=== PATIENT | female | born 1960 | race American Indian/Alaskan Native ===

== ENCOUNTER 2017-03-19 17:52 | Inpatient (IN) | payer OTHER ==
[2017-03-19 19:12] LABS: BASO % 0.9 % (0.0-2.0); EOS # 0.1 K/uL (0.0-0.7); HEMOGLOBIN 13.7 g/dL (11.0-16.0); LYMPH # 1.9 K/uL (1.0-4.3); LYMPH % 41.4 % (20.0-40.0); MEAN CORPUSCULAR HEMOGLOBIN 29.6 pg (27.0-31.0); MEAN CORPUSCULAR HGB CONC 32.9 g/dL (33.0-37.0); MEAN PLATELET VOLUME 8.2 fL (7.2-11.7); MONO # 0.4 K/uL (0.0-0.8); MONO % 8.7 % (0.0-10.0); NEUT # 2.2 K/uL (1.8-7.0); NRBC % 0.1 % (0.0-2.0); RBC 4.62 Mil/uL (3.80-5.20); WHITE BLOOD COUNT 4.7 K/uL (4.8-10.8)
[2017-03-19 19:30] LABS: ALB/GLOB RATIO 1.1 (1.0-2.1); ALBUMIN 4.1 g/dL (3.5-5.0); ALT/SGPT 17 U/L (9-52); AST/SGOT 22 U/L (14-36); BLOOD UREA NITROGEN 7 mg/dL (7-17); CALCIUM 8.1 mg/dl (8.6-10.4); GFR AFRICAN-AMERICAN > 60; GFR NON-AFRICAN AMERICAN > 60
[2017-03-19 19:34] LABS: SQUAMOUS EPITHIAL 21 /hpf (0-5); URINE BILIRUBIN NEGATIVE (NEGATIVE); URINE BLOOD NEGATIVE (NEGATIVE); URINE CLARITY Hazy (Clear); URINE COLOR Yellow (YELLOW); URINE GLUCOSE (UA) NORMAL (Normal); URINE LEUKOCYTE ESTERASE TRACE Leu/uL (Negative); URINE NITRATE NEGATIVE (NEGATIVE); URINE PROTEIN NEGATIVE (NEGATIVE); URINE UROBILINOGEN NORMAL mg/dL (0.2-1.0)
[2017-03-19 19:47] LABS: FREE T4 0.17 ng/dL (0.78-2.19)
[2017-03-19 20:04] LABS: BARBITURATES, UR NEGATIVE (NEGATIVE); BENZODIAZEPINES, UR NEGATIVE (NEGATIVE); PHENCYCLIDINE, UR NEGATIVE (NEGATIVE)
[2017-03-19] MEDS ORDERED: Albuterol-Ipratrop 3 mg / 0.5 (3 ml) UD ONE ×2 (20:04→20:14)
[2017-03-19 20:05] LABS: OPIATES, UR POSITIVE (NEGATIVE)
[2017-03-19] MEDS: Albuterol-Ipratrop 3 mg / 0.5 (3 ml) UD IH SCH ×2 (20:08→20:21)
[2017-03-19] MEDS ORDERED: cefTRIAXone IV 1 gm in Dextros 50 ML IVPB STA (20:37)
[2017-03-19] MEDS ORDERED: Azithromycin 500 MG in Sodium Chloride 0.9% 250 ML IVPB STA (20:37)
[2017-03-19] MEDS ORDERED: Lactated Ringer's 1,000 ML IVB STA (20:44)
[2017-03-19] MEDS ORDERED: Lactated Ringer's 1,000 ML ONE (20:57)
--- NOTE | 2017-03-19 21:14 | C.PDOC ---
History Of Present Illness Pt came here requesting detox from Heroin. However she was found to be hypoxic with abnormal lung sounds. She c/o SOB and cough. Time Seen by Provider: 03/19/17 18:15 Chief Complaint (Nursing): Shortness Of Breath History Per: Patient Onset/Duration Of Symptoms: Days Current Symptoms Are (Timing): Still Present Current Respiratory Medications: See Home Med List Severity: Moderate Associated Symptoms: Productive Cough Reports Recently: Treated By A Physician Additional History Per: Prior Records Past Medical History Reviewed: Historical Data, Nursing Documentation, Vital Signs Vital Signs: Last Vital Signs Temp 97.6 F 03/19/17 20:17 Pulse 81 03/19/17 20:17 Resp 20 03/19/17 20:17 BP 143/90 03/19/17 20:17 Pulse Ox 98 03/19/17 20:17 - Medical History PMH: Bipolar Disorder, COPD, HTN, Hyperthyroidism, Seizures Family History: States: Unknown Family Hx - Social History Hx Tobacco Use: Yes Hx Alcohol Use: No Hx Substance Use: Yes (Snorts Heroin) - Immunization History Hx Tetanus Toxoid Vaccination: Yes Hx Influenza Vaccination: Yes Hx Pneumococcal Vaccination: No Review Of Systems Except As Marked, All Systems Reviewed And Found Negative. Constitutional: Negative for: Weakness Respiratory: Positive for: Cough, Shortness of Breath, Wheezing Gastrointestinal: Negative for: Vomiting, Abdominal Pain, Diarrhea Genitourinary: Negative for: Dysuria Musculoskeletal: Negative for: Neck Pain Skin: Negative for: Rash Neurological: Negative for: Weakness, Numbness Physical Exam - Physical Exam Appears: Non-toxic, No Acute Distress Skin: Normal Color, Warm, Dry, No Rash Head: Atraumatic, Normacephalic Eye(s): bilateral: Normal Inspection, PERRL, EOMI Neck: Normal ROM, Supple, Other (Enlarged thyroid gland) Cardiovascular: Rhythm Regular Respiratory: No Accessory Muscle Use, Wheezing Gastrointestinal/Abdominal: Soft, No Tenderness Back: No CVA Tenderness Extremity: Normal ROM, No Pedal Edema, No Calf Tenderness Neurological/Psych: Oriented x3, Normal Motor, Normal Sensation ED Course And Treatment - Laboratory Results Result Diagrams: 03/19/17 19:01 03/19/17 19:01 Lab Interpretation: Abnormal Interpretation Of Abnormal: Thyroid hormone level is low. O2 Sat by Pulse Oximetry: 88 Pulse Ox Interpretation: Abnormal Interpretation Of Abnormal: Hypoxia on RA - Radiology CXR: Interpreted by Me, Viewed By Me CXR Interpretation: Yes: Infiltrates (right middle) - Physician Consult Information Physician Contacted: Hunter Garcia (PMD) Outcome Of Conversation: He wants pt to be admitted under Dr. Carlee Guzmán's service. Disposition Discussed With : Romario Guzmán Comment: He accepted pt on his service. Doctor Will See Patient In The: Hospital Counseled Patient/Family Regarding: Studies Performed, Diagnosis, Smoking Cessation - Disposition Disposition: HOSPITALIZED Disposition Time: 21:16 Condition: FAIR - Clinical Impression Clinical Impression: Pneumonia, COPD exacerbation, Hypothyroid, Hypoxia
--- NOTE | 2017-03-19 21:58 | RAD ---
HISTORY: Cough, wheezing COMPARISON: No prior. TECHNIQUE: Chest PA and lateral FINDINGS: LUNGS: There is heterogeneous infiltrate and opacity at the right middle lobe suspicious for pneumonia. PLEURA: No significant pleural effusion identified. No pneumothorax apparent. CARDIOVASCULAR: Normal. OSSEOUS STRUCTURES: No significant abnormalities. VISUALIZED UPPER ABDOMEN: Normal. OTHER FINDINGS: None. IMPRESSION: Suspicious for right middle lobe pneumonia.
--- NOTE | 2017-03-19 22:25 | CP.PCM.HP ---
Past Patient History - Past Social History Smoking Status: Heavy Smoker > 10 Cigarettes Daily - CARDIAC Hx Hypertension: Yes - PULMONARY Hx Chronic Obstructive Pulmonary Disease (COPD): Yes - NEUROLOGICAL Hx Seizures: Yes - ENDOCRINE/METABOLIC Hx Hyperthyroidism: Yes - HEMATOLOGICAL/ONCOLOGICAL Hx Cancer: No Hx Human Immunodeficiency Virus (HIV): No - GENITOURINARY/GYNECOLOGICAL Hx Sexually Transmitted Disorders: No - PSYCHIATRIC Hx Bipolar Disorder: Yes Hx Substance Use: Yes (Snorts Heroin) - SURGICAL HISTORY Hx Surgeries: No - ANESTHESIA Hx Anesthesia: No Hx Anesthesia Reactions: No Hx Malignant Hyperthermia: No Meds Allergies/Adverse Reactions: Allergies Allergy/AdvReac Type Severity Reaction Status Date / Time iodine Allergy SWELLING Verified 03/19/17 18:04 shellfish derived Allergy SWELLING Verified 03/19/17 18:04 Results - Vital Signs Recent Vital Signs: Last Vital Signs Temp 97.6 F 03/19/17 20:17 Pulse 81 03/19/17 20:17 Resp 20 03/19/17 20:17 BP 143/90 03/19/17 20:17 Pulse Ox 88 L 03/19/17 21:18 - Labs Result Diagrams: 03/19/17 19:01 03/19/17 19:01 Labs: Laboratory Results - last 24 hr 03/19/17 03/19/17 03/19/17 19:01 19:01 19:01 WBC 4.7 L RBC 4.62 Hgb 13.7 Hct 41.6 MCV 90.0 MCH 29.6 MCHC 32.9 L RDW 15.0 H Plt Count 243 MPV 8.2 Neut % (Auto) 47.0 L Lymph % (Auto) 41.4 H [place] % (Auto) 8.7 Eos % (Auto) 2.0 Baso % (Auto) 0.9 Neut # 2.2 Lymph # 1.9 [place] # 0.4 Eos # 0.1 Baso # 0.0 Sodium 135 Potassium 3.4 L Chloride 95 L Carbon Dioxide 35 H Anion Gap 9 L BUN 7 Creatinine 0.6 L Est GFR ( Amer) > 60 Est GFR (Non-Af Amer) > 60 Random Glucose 83 Calcium 8.1 L Total Bilirubin 0.5 AST 22 ALT 17 Alkaline Phosphatase 68 Total Protein 7.8 Albumin 4.1 Globulin 3.6 Albumin/Globulin Ratio 1.1 Free T4 TSH 3rd Generation Urine Color Urine Clarity Urine pH Ur Specific [place] Urine Protein Urine Glucose (UA) Urine Ketones Urine Blood Urine Nitrate Urine Bilirubin Urine Urobilinogen Ur Leukocyte Esterase Urine WBC (Auto) Urine RBC (Auto) Ur Squamous Epith Cells Urine Opiates Screen Urine Methadone Screen Ur Barbiturates Screen Valproic Acid < 10.0 L Ur Phencyclidine Scrn Ur Amphetamines Screen U Benzodiazepines Scrn U Oth Cocaine Metabols U Cannabinoids Screen Alcohol, Quantitative < 10 03/19/17 03/19/17 03/19/17 19:01 19:24 19:24 WBC RBC Hgb Hct MCV MCH MCHC RDW Plt Count MPV Neut % (Auto) Lymph % (Auto) [place] % (Auto) Eos % (Auto) Baso % (Auto) Neut # Lymph # [place] # Eos # Baso # Sodium Potassium Chloride Carbon Dioxide Anion Gap BUN Creatinine Est GFR ( Amer) Est GFR (Non-Af Amer) Random Glucose Calcium Total Bilirubin AST ALT Alkaline Phosphatase Total Protein Albumin Globulin Albumin/Globulin Ratio Free T4 0.17 L TSH 3rd Generation 23.70 H Urine Color Yellow Urine Clarity Hazy Urine pH 7.0 Ur Specific [place] 1.011 Urine Protein Negative Urine Glucose (UA) Normal Urine Ketones Negative Urine Blood Negative Urine Nitrate Negative Urine Bilirubin Negative Urine Urobilinogen Normal Ur Leukocyte Esterase Trace Urine WBC (Auto) 12 H Urine RBC (Auto) 2 Ur Squamous Epith Cells 21 H Urine Opiates Screen Positive H Urine Methadone Screen Negative Ur Barbiturates Screen Negative Valproic Acid Ur Phencyclidine Scrn Negative Ur Amphetamines Screen Negative U Benzodiazepines Scrn Negative U Oth Cocaine Metabols Negative U Cannabinoids Screen Negative Alcohol, Quantitative
[2017-03-20] MEDS: MethylPREDNISolone 40 mg Vial IV SCH ×3 (07:28→21:20)
[2017-03-20] MEDS: Albuterol-Ipratrop 3 mg / 0.5 (3 ml) UD INH SCH ×3 (08:17→20:38)
[2017-03-20] MEDS: Pantoprazole 40 mg EC Tab PO SCH (10:22)
[2017-03-20] MEDS: Divalproex 500 mg ER Tab PO SCH ×4 (10:22→21:19)
[2017-03-20] MEDS: Enoxaparin 40 mg Syringe SC SCH (10:23)
[2017-03-20] MEDS: Azithromycin 500 MG in Sodium Chloride 0.9% 250 ML IVPB SCH (10:24)
[2017-03-20] MEDS ORDERED: Buprenorphine Hydrochloride 2 mg SL SCH (13:30)
[2017-03-20] MEDS: Fluticasone-Salmeterol 250-50mcg Diskus INH SCH ×2 (13:41→20:39)
[2017-03-20] MEDS ORDERED: Buprenorphine Hydrochloride 2 mg SL ONE (14:30)
--- NOTE | 2017-03-20 15:19 | PCM.PSYCH ---
Initial Psychiatric Evaluation - Initial Psychiatric Evaluation Chief Complaint (in patient's own words): "I need treatment" History of Present Illness and Precipitating Events: This is a 56 yo AAF who came to hospital for opioid detox. However, she was admitted to medicine floor for worsening of COPD and Pneumonia. Pt was seen and evaluated. Chart reviewed anurse input received that pt is anxious, and pacing back and forth. THe pt is asking treatment for opioid withdrawal symptoms. Patient stated that she wants to detox because she had a new Great Grand baby and she is tired of being under its (heroin) control. Patient adds she has 4 children, 7 grandchildren and 3 great grandchildren. Additionally she reports that none of her family is aware of her addiction. The pt appeared angry, irritable and stated that she cannot hold her anxiety, restlessness and cannot stay in the hospital with detox treatmet. The pt was minimally cooperative. She has been using 13 bags of heroin intra- nasally on and off for the past 20+ years. Her last use was 1 day before coming to the hospital. CAGE questionnaire was positive. She reported withdrawal symptoms including irritable mood, difficulty in sleep, hot and cold sweats, headache, cramps in the legs, and in stomach. She denied any detox in the past. She denied any rehab including NA meeting in the past. Pt denied drinking etoh, or illicit substances use. Patient reports she has been diagnosed with Bipolar Disorder and is under the care of a psychiatrist. Patient is prescribed Risperdal, Gabapentin and Zoloft with which she reports compliance. However, her depakote level was less than 10. Patient denies any acute psych symptoms and she denies SI/HI. Patient has a seizure history and is prescribed Depakote. Patient reports she is compliant with this as well and has not had a seizure in 3 years. Current Medications: Active Medications Generic Name Dose Route Start Last Admin Trade Name Freq PRN Reason Stop Dose Admin Albuterol/Ipratropium 3 ml 03/20/17 02:00 03/20/17 13:40 Duoneb 3 Mg/0.5 Mg (3 Ml) Ud INH 3 ml RQ6 JAYDEN Administration Divalproex Sodium 500 mg 03/20/17 10:03/20/17 13:44 Depakote Er PO 500 mg TID JAYDEN Administration Enoxaparin Sodium 40 mg 03/20/17 10:00 03/20/17 10:23 Lovenox SC 40 mg DAILY JAYDEN Administration Gabapentin 300 mg 03/20/17 10:00 03/20/17 13:44 Neurontin PO 300 mg TID JAYDEN Administration Azithromycin 500 mg/ Sodium 250 mls @ 250 mls/hr 03/20/17 10:00 03/20/17 10: 24 Chloride IVPB 250 mls/hr DAILY JAYDEN Administration Ceftriaxone Sodium 1 gm/ 100 mls @ 100 mls/hr 03/20/17 10:00 03/20/17 09:00 Sodium Chloride IVPB 100 mls/hr DAILY JAYDEN Administration Methimazole 10 mg 03/20/17 10:00 03/20/17 10:21 Tapazole PO 10 mg BID JAYDEN Administration Methylprednisolone 40 mg 03/20/17 06:00 03/20/17 13:45 Solu-Medrol IV 40 mg Q8 JAYDEN Administration Montelukast Sodium 10 mg 03/20/17 22:00 Singulair PO HS JAYDEN Pantoprazole Sodium 40 mg 03/20/17 10:00 03/20/17 10:22 Protonix Ec Tab PO 40 mg DAILY JAYDEN Administration Risperidone 3 mg 03/20/17 10:00 03/20/17 13:44 Risperdal Tab PO 3 mg TID JAYDEN Administration Fluticasone/Salmeterol 1 puff 03/20/17 08:00 03/20/17 13:41 Advair Diskus 250/50 INH Not Given RQ12 JAYDEN Sertraline HCl 50 mg 03/20/17 10:00 03/20/17 10:22 Zoloft PO 50 mg BID JAYDEN Administration Past Psychiatric History - Past Psychiatric History Previous Treatment History: None History of Abuse: denied History of ETOH/Drug Use: Please see HPI History of Family Illness: denied Pertinent Medical Hx (Current Medical&Sleep Prob, Allergies): NKDA Allergies Allergy/AdvReac Type Severity Reaction Status Date / Time iodine Allergy SWELLING Verified 03/19/17 18:04 shellfish derived Allergy SWELLING Verified 03/19/17 18:04 Albuterol 0.083% [Albuterol Sulfate 3 Ml] 3 ml IH Q6 PRN 03/19/17 Albuterol HFA [Ventolin HFA 90 mcg/actuation (8 g)] 2 puff IH [id number] 03/19/17 Divalproex [Depakote ER] 500 mg PO TID 03/19/17 Gabapentin 300 mg PO TID 03/19/17 Risperidone [Risperdal] 3 mg PO TID 03/19/17 Sertraline [Zoloft] 50 mg PO BID 03/19/17 methIMAzole [Tapazole] 10 mg PO BID 03/19/17 PMH: COPD, Pneumonia Review of Systems - Review of Systems All systems: reviewed and no additional remarkable complaints except - Constitutional Constitutional: Sweats, Malaise - EENT Eyes: As Per HPI, Discharge Ears: UNREMARKABLE Nose/Mouth/Throat: Nasal Congestion, Nasal Discharge - Respiratory Respiratory: As Per HPI - Gastrointestinal Gastrointestinal: Cramping - Genitourinary Genitourinary: UNREMARKABLE - Reproductive: Female Reproductive:Female: UNREMARKABLE - Menstruation Menstruation: UNREMARKABLE - Musculoskeletal Musculoskeletal: Muscle Cramps - Integumentary Integumentary: UNREMARKABLE - Neurological Neurological: UNREMARKABLE - Psychiatric Psychiatric: As Per HPI - Endocrine Endocrine: UNREMARKABLE - Hematologic/Lymphatic Hematologic: UNREMARKABLE Mental Status Examination - Personal Presentation Personal Presentation: Looks stated age, Dressed appropriate to season - Affect Affect: Constricted - Motor Activity Motor Activity: Psychomotor Agitation - Reliability in Providing Information Reliability in Providing Information: Fair - Speech Speech: Organized - Mood Mood: Anxious - Formal Thought Process Formal Thought Process: No Impairment - Hallucinations/Delusions Hallucinations: Other (denied) - Obsessions/Compulsions Obsessions: None Compulsions: None - Cognitive Functions Orientation: Person, Place, Situation, Time Sensorium: Alert Attention/Concentration: Attentive Abstract Thinking: Creole Estimate of Intelligence: Average Judgement: Imparied, as evidence by: Poor judgement, Intact, as evidence by: Insight regarding need for hospitalization Memory: Recent intact, as evidence by: Ability to recall events of the day - Risk Risk: Withdrawal - Strength & Assets Inventory Strength & Assets Inventory: Family support, Spiritual affiliations - Limitations Limitations: Other (chronic illicit drug use) DSM 5 DX - DSM 5 DSM 5 Diagnosis: Opioid dependenc, severe, with withdrawal symptoms - Recommended/Plan of Treatment Treatment Recommendations and Plan of Treatment: Monitor vitals Recommend Subutex detox start Subutex 2 mg once followed by 6 mg po once for opioid withdrawal symptoms. PRN meds clonidine 0.1 mg po Q6H prn for autonomic instability Ibuprofen 400-600 mg po Q6h prn for pain Loperamide 2 mg po Q 6-8 hr prn for diarrhea Zofran 4 mg sl Q 8h prn for nausea/ vomiting Bentyl prn for stomach cramps Psych c/l team will follow Projected ELOS: 4-5 days Prognosis: fair with the compliance with meds - Smoking Cessation Smoking Cessation Initiated: No
[2017-03-20 16:39] VITALS: RESP 20
--- NOTE | 2017-03-20 20:24 | CP.PCM.CON ---
Past Patient History - Past Social History Smoking Status: Light Smoker < 10 Cigarettes Daily - CARDIAC Hx Hypertension: Yes - PULMONARY Hx Chronic Obstructive Pulmonary Disease (COPD): Yes - NEUROLOGICAL Hx Seizures: Yes - ENDOCRINE/METABOLIC Hx Hyperthyroidism: Yes - HEMATOLOGICAL/ONCOLOGICAL Hx Cancer: No Hx Human Immunodeficiency Virus (HIV): No - MUSCULOSKELETAL/RHEUMATOLOGICAL Hx Falls: No (As per pt) - GENITOURINARY/GYNECOLOGICAL Hx Sexually Transmitted Disorders: No - PSYCHIATRIC Hx Bipolar Disorder: Yes Hx Substance Use: Yes (Snorts Heroin) - SURGICAL HISTORY Hx Surgeries: No - ANESTHESIA Hx Anesthesia: No Hx Anesthesia Reactions: No Hx Malignant Hyperthermia: No Meds Allergies/Adverse Reactions: Allergies Allergy/AdvReac Type Severity Reaction Status Date / Time iodine Allergy SWELLING Verified 03/19/17 18:04 shellfish derived Allergy SWELLING Verified 03/19/17 18:04 - Medications Medications: Current Medications Albuterol/Ipratropium (Duoneb 3 Mg/0.5 Mg (3 Ml) Ud) 3 ml INH RQ6 [facility] Last Admin: 03/20/17 13:40 Dose: 3 ml Dicyclomine HCl (Bentyl) 10 mg PO Q8 PRN PRN Reason: GI distress Divalproex Sodium (Depakote Er) 500 mg PO TID [facility] Last Admin: 03/20/17 19:08 Dose: Not Given Enoxaparin Sodium (Lovenox) 40 mg SC DAILY [facility] Last Admin: 03/20/17 10:23 Dose: 40 mg Gabapentin (Neurontin) 300 mg PO TID [facility] Last Admin: 03/20/17 19:08 Dose: Not Given Hydroxyzine HCl (Atarax) 25 mg PO Q6 PRN PRN Reason: Anxiety Azithromycin 500 mg/ Sodium (Chloride) 250 mls @ 250 mls/hr IVPB DAILY [facility] Last Admin: 03/20/17 10:24 Dose: 250 mls/hr Ceftriaxone Sodium 1 gm/ (Sodium Chloride) 100 mls @ 100 mls/hr IVPB DAILY [facility] Last Admin: 03/20/17 09:00 Dose: 100 mls/hr Methimazole (Tapazole) 10 mg PO BID [facility] Last Admin: 03/20/17 19:09 Dose: Not Given Methylprednisolone (Solu-Medrol) 40 mg IV Q8 [facility] Last Admin: 03/20/17 13:45 Dose: 40 mg Montelukast Sodium (Singulair) 10 mg PO HS [facility] Pantoprazole Sodium (Protonix Ec Tab) 40 mg PO DAILY [facility] Last Admin: 03/20/17 10:22 Dose: 40 mg Risperidone (Risperdal Tab) 3 mg PO TID [facility] Last Admin: 03/20/17 19:09 Dose: Not Given Fluticasone/Salmeterol (Advair Diskus 250/50) 1 puff INH RQ12 [facility] Last Admin: 03/20/17 13:41 Dose: Not Given Sertraline HCl (Zoloft) 50 mg PO BID [facility] Last Admin: 03/20/17 19:09 Dose: Not Given Zolpidem Tartrate (Ambien) 5 mg PO HS PRN PRN Reason: Insomnia Results - Vital Signs Recent Vital Signs: Last Vital Signs Temp 97.8 F 03/20/17 16:38 Pulse 77 03/20/17 16:38 Resp 20 03/20/17 16:38 BP 133/79 03/20/17 16:38 Pulse Ox 96 03/20/17 16:38 - Labs Result Diagrams: 03/19/17 19:01 03/19/17 19:01
--- NOTE | 2017-03-20 20:28 | CP.PCM.PN ---
Subjective - Date & Time of Evaluation Date of Evaluation: 03/20/17 Time of Evaluation: 12:00 - Subjective Subjective: clinically same Objective - Vital Signs/Intake and Output Vital Signs (last 24 hours): Temp Pulse Resp BP Pulse Ox 97.8 F 77 20 133/79 96 03/20/17 16:38 03/20/17 16:38 03/20/17 16:38 03/20/17 16:38 03/20/17 16:38 - Medications Medications: Current Medications Albuterol/Ipratropium (Duoneb 3 Mg/0.5 Mg (3 Ml) Ud) 3 ml INH RQ6 [facility] Last Admin: 03/20/17 13:40 Dose: 3 ml Dicyclomine HCl (Bentyl) 10 mg PO Q8 PRN PRN Reason: GI distress Divalproex Sodium (Depakote Er) 500 mg PO TID [facility] Last Admin: 03/20/17 19:08 Dose: Not Given Enoxaparin Sodium (Lovenox) 40 mg SC DAILY [facility] Last Admin: 03/20/17 10:23 Dose: 40 mg Gabapentin (Neurontin) 300 mg PO TID [facility] Last Admin: 03/20/17 19:08 Dose: Not Given Hydroxyzine HCl (Atarax) 25 mg PO Q6 PRN PRN Reason: Anxiety Azithromycin 500 mg/ Sodium (Chloride) 250 mls @ 250 mls/hr IVPB DAILY [facility] Last Admin: 03/20/17 10:24 Dose: 250 mls/hr Ceftriaxone Sodium 1 gm/ (Sodium Chloride) 100 mls @ 100 mls/hr IVPB DAILY [facility] Last Admin: 03/20/17 09:00 Dose: 100 mls/hr Methimazole (Tapazole) 10 mg PO BID [facility] Last Admin: 03/20/17 19:09 Dose: Not Given Methylprednisolone (Solu-Medrol) 40 mg IV Q8 [facility] Last Admin: 03/20/17 13:45 Dose: 40 mg Montelukast Sodium (Singulair) 10 mg PO [facility] Pantoprazole Sodium (Protonix Ec Tab) 40 mg PO DAILY [facility] Last Admin: 03/20/17 10:22 Dose: 40 mg Risperidone (Risperdal Tab) 3 mg PO TID [facility] Last Admin: 03/20/17 19:09 Dose: Not Given Fluticasone/Salmeterol (Advair Diskus 250/50) 1 puff INH RQ12 [facility] Last Admin: 03/20/17 13:41 Dose: Not Given Sertraline HCl (Zoloft) 50 mg PO BID [facility] Last Admin: 03/20/17 19:09 Dose: Not Given Zolpidem Tartrate (Ambien) 5 mg PO HS PRN PRN Reason: Insomnia - Labs Labs: 03/19/17 19:01 03/19/17 19:01
[2017-03-20] MEDS ORDERED: Potassium Chloride 20 mEq ER Tab PO ONE ×2 (21:48→23:45)
[2017-03-21] MEDS: Albuterol-Ipratrop 3 mg / 0.5 (3 ml) UD INH SCH ×4 (02:12→19:11)
[2017-03-21] MEDS: MethylPREDNISolone 40 mg Vial IV SCH ×3 (06:19→21:08)
[2017-03-21] MEDS: Fluticasone-Salmeterol 250-50mcg Diskus INH SCH ×2 (07:17→19:09)
[2017-03-21] MEDS: Pantoprazole 40 mg EC Tab PO SCH (09:21)
[2017-03-21] MEDS: Enoxaparin 40 mg Syringe SC SCH ×2 (09:21→09:27)
[2017-03-21] MEDS: Divalproex 500 mg ER Tab PO SCH ×3 (09:22→18:27)
[2017-03-21] MEDS: Azithromycin 500 MG in Sodium Chloride 0.9% 250 ML IVPB SCH (11:15)
--- NOTE | 2017-03-21 18:52 | CP.PCM.PN ---
Subjective - Date & Time of Evaluation Date of Evaluation: 03/21/17 Time of Evaluation: 11:20 - Subjective Subjective: clinically same Objective - Vital Signs/Intake and Output Vital Signs (last 24 hours): Temp Pulse Resp BP Pulse Ox 97.9 F 106 H 20 122/76 95 03/21/17 15:59 03/21/17 15:59 03/21/17 15:59 03/21/17 15:59 03/21/17 15:59 - Medications Medications: Current Medications Albuterol/Ipratropium (Duoneb 3 Mg/0.5 Mg (3 Ml) Ud) 3 ml INH RQ6 [facility] Last Admin: 03/21/17 13:22 Dose: 3 ml Dicyclomine HCl (Bentyl) 10 mg PO Q8 PRN PRN Reason: GI distress Last Admin: 03/21/17 04:49 Dose: 10 mg Divalproex Sodium (Depakote Er) 500 mg PO TID [facility] Last Admin: 03/21/17 18:27 Dose: 500 mg Enoxaparin Sodium (Lovenox) 40 mg SC DAILY [facility] Last Admin: 03/21/17 09:27 Dose: Not Given Gabapentin (Neurontin) 300 mg PO TID [facility] Last Admin: 03/21/17 18:28 Dose: 300 mg Hydroxyzine HCl (Atarax) 25 mg PO Q6 PRN PRN Reason: Anxiety Last Admin: 03/21/17 04:49 Dose: 25 mg Azithromycin 500 mg/ Sodium (Chloride) 250 mls @ 250 mls/hr IVPB DAILY [facility] Last Admin: 03/21/17 11:15 Dose: 250 mls/hr Ceftriaxone Sodium 1 gm/ (Sodium Chloride) 100 mls @ 100 mls/hr IVPB DAILY [facility] Last Admin: 03/21/17 09:20 Dose: 100 mls/hr Methimazole (Tapazole) 10 mg PO BID [facility] Last Admin: 03/21/17 18:32 Dose: 10 mg Methylprednisolone (Solu-Medrol) 40 mg IV Q8 [facility] Last Admin: 03/21/17 14:46 Dose: 40 mg Montelukast Sodium (Singulair) 10 mg PO HS [facility] Last Admin: 03/20/17 21:19 Dose: 10 mg Nicotine (Nicoderm Cq) 1 patch TD DAILY [facility] Last Admin: 03/21/17 14:46 Dose: 1 patch Ondansetron HCl (Zofran Tab) 4 mg PO Q8 PRN PRN Reason: Nausea/Vomiting Last Admin: 03/21/17 12:37 Dose: 4 mg Pantoprazole Sodium (Protonix Ec Tab) 40 mg PO DAILY [facility] Last Admin: 03/21/17 09:21 Dose: 40 mg Risperidone (Risperdal Tab) 3 mg PO TID [facility] Last Admin: 03/21/17 18:27 Dose: 3 mg Fluticasone/Salmeterol (Advair Diskus 250/50) 1 puff INH RQ12 [facility] Last Admin: 03/21/17 07:17 Dose: Not Given Sertraline HCl (Zoloft) 50 mg PO BID [facility] Last Admin: 03/21/17 18:32 Dose: 50 mg Zolpidem Tartrate (Ambien) 5 mg PO HS PRN PRN Reason: Insomnia - Labs Labs: 03/19/17 19:01 03/19/17 19:01
--- NOTE | 2017-03-21 19:12 | CP.PCM.PN ---
Subjective - Date & Time of Evaluation Date of Evaluation: 03/21/17 Time of Evaluation: 19:12 Objective - Vital Signs/Intake and Output Vital Signs (last 24 hours): Temp Pulse Resp BP Pulse Ox 97.9 F 106 H 20 122/76 95 03/21/17 15:59 03/21/17 15:59 03/21/17 15:59 03/21/17 15:59 03/21/17 15:59 - Medications Medications: Current Medications Albuterol/Ipratropium (Duoneb 3 Mg/0.5 Mg (3 Ml) Ud) 3 ml INH RQ6 [facility] Last Admin: 03/21/17 19:11 Dose: Not Given Dicyclomine HCl (Bentyl) 10 mg PO Q8 PRN PRN Reason: GI distress Last Admin: 03/21/17 04:49 Dose: 10 mg Divalproex Sodium (Depakote Er) 500 mg PO TID [facility] Last Admin: 03/21/17 18:27 Dose: 500 mg Enoxaparin Sodium (Lovenox) 40 mg SC DAILY [facility] Last Admin: 03/21/17 09:27 Dose: Not Given Gabapentin (Neurontin) 300 mg PO TID [facility] Last Admin: 03/21/17 18:28 Dose: 300 mg Hydroxyzine HCl (Atarax) 25 mg PO Q6 PRN PRN Reason: Anxiety Last Admin: 03/21/17 04:49 Dose: 25 mg Azithromycin 500 mg/ Sodium (Chloride) 250 mls @ 250 mls/hr IVPB DAILY [facility] Last Admin: 03/21/17 11:15 Dose: 250 mls/hr Ceftriaxone Sodium 1 gm/ (Sodium Chloride) 100 mls @ 100 mls/hr IVPB DAILY [facility] Last Admin: 03/21/17 09:20 Dose: 100 mls/hr Methimazole (Tapazole) 10 mg PO BID [facility] Last Admin: 03/21/17 18:32 Dose: 10 mg Methylprednisolone (Solu-Medrol) 40 mg IV Q8 [facility] Last Admin: 03/21/17 14:46 Dose: 40 mg Montelukast Sodium (Singulair) 10 mg PO HS [facility] Last Admin: 03/20/17 21:19 Dose: 10 mg Nicotine (Nicoderm Cq) 1 patch TD DAILY [facility] Last Admin: 03/21/17 14:46 Dose: 1 patch Ondansetron HCl (Zofran Tab) 4 mg PO Q8 PRN PRN Reason: Nausea/Vomiting Last Admin: 03/21/17 12:37 Dose: 4 mg Pantoprazole Sodium (Protonix Ec Tab) 40 mg PO DAILY [facility] Last Admin: 03/21/17 09:21 Dose: 40 mg Risperidone (Risperdal Tab) 3 mg PO TID [facility] Last Admin: 03/21/17 18:27 Dose: 3 mg Fluticasone/Salmeterol (Advair Diskus 250/50) 1 puff INH RQ12 [facility] Last Admin: 03/21/17 19:09 Dose: 1 puff Sertraline HCl (Zoloft) 50 mg PO BID [facility] Last Admin: 03/21/17 18:32 Dose: 50 mg Zolpidem Tartrate (Ambien) 5 mg PO HS PRN PRN Reason: Insomnia - Labs Labs: 03/19/17 19:01 03/19/17 19:01
[2017-03-21] MEDS ORDERED: Potassium Chloride 20 mEq ER Tab PO ONE (23:30)
[2017-03-22] MEDS: Albuterol-Ipratrop 3 mg / 0.5 (3 ml) UD INH SCH ×4 (01:31→19:00)
[2017-03-22] MEDS: MethylPREDNISolone 40 mg Vial IV SCH ×3 (06:19→21:35)
[2017-03-22] MEDS: Fluticasone-Salmeterol 250-50mcg Diskus INH SCH (08:07)
--- NOTE | 2017-03-22 08:36 | CP.PCM.PN ---
Subjective - Date & Time of Evaluation Date of Evaluation: 03/22/17 Time of Evaluation: 10:00 - Subjective Subjective: clinically ssame Objective - Vital Signs/Intake and Output Vital Signs (last 24 hours): Temp Pulse Resp BP Pulse Ox 97.9 F 106 H 20 122/76 95 03/21/17 15:59 03/21/17 15:59 03/21/17 15:59 03/21/17 15:59 03/21/17 15:59 Intake and Output: 03/22/17 03/22/17 06:59 18:59 Intake Total 200 100 Balance 200 100 - Medications Medications: Current Medications Albuterol/Ipratropium (Duoneb 3 Mg/0.5 Mg (3 Ml) Ud) 3 ml INH RQ6 [facility] Last Admin: 03/22/17 07:41 Dose: 3 ml Dicyclomine HCl (Bentyl) 10 mg PO Q8 PRN PRN Reason: GI distress Last Admin: 03/21/17 04:49 Dose: 10 mg Divalproex Sodium (Depakote Er) 500 mg PO TID [facility] Last Admin: 03/21/17 18:27 Dose: 500 mg Enoxaparin Sodium (Lovenox) 40 mg SC DAILY [facility] Last Admin: 03/21/17 09:27 Dose: Not Given Gabapentin (Neurontin) 300 mg PO TID [facility] Last Admin: 03/21/17 18:28 Dose: 300 mg Hydroxyzine HCl (Atarax) 25 mg PO Q6 PRN PRN Reason: Anxiety Last Admin: 03/21/17 04:49 Dose: 25 mg Azithromycin 500 mg/ Sodium (Chloride) 250 mls @ 250 mls/hr IVPB DAILY [facility] Last Admin: 03/21/17 11:15 Dose: 250 mls/hr Ceftriaxone Sodium 1 gm/ (Sodium Chloride) 100 mls @ 100 mls/hr IVPB DAILY [facility] Last Admin: 03/21/17 09:20 Dose: 100 mls/hr Methimazole (Tapazole) 10 mg PO BID [facility] Last Admin: 03/21/17 18:32 Dose: 10 mg Methylprednisolone (Solu-Medrol) 40 mg IV Q8 [facility] Last Admin: 03/22/17 06:19 Dose: 40 mg Montelukast Sodium (Singulair) 10 mg PO HS [facility] Last Admin: 03/21/17 21:08 Dose: 10 mg Nicotine (Nicoderm Cq) 1 patch TD DAILY [facility] Last Admin: 03/21/17 14:46 Dose: 1 patch Ondansetron HCl (Zofran Tab) 4 mg PO Q8 PRN PRN Reason: Nausea/Vomiting Last Admin: 03/21/17 12:37 Dose: 4 mg Pantoprazole Sodium (Protonix Ec Tab) 40 mg PO DAILY [facility] Last Admin: 03/21/17 09:21 Dose: 40 mg Risperidone (Risperdal Tab) 3 mg PO TID [facility] Last Admin: 03/21/17 18:27 Dose: 3 mg Fluticasone/Salmeterol (Advair Diskus 250/50) 1 puff INH RQ12 [facility] Last Admin: 03/21/17 19:09 Dose: 1 puff Sertraline HCl (Zoloft) 50 mg PO BID [facility] Last Admin: 03/21/17 18:32 Dose: 50 mg Zolpidem Tartrate (Ambien) 5 mg PO HS PRN PRN Reason: Insomnia - Labs Labs: 03/19/17 19:01 03/19/17 19:01
[2017-03-22] MEDS: Azithromycin 500 MG in Sodium Chloride 0.9% 250 ML IVPB SCH (09:53)
[2017-03-22] MEDS: Divalproex 500 mg DR Tab PO SCH ×3 (09:54→18:00)
[2017-03-22] MEDS: Pantoprazole 40 mg EC Tab PO SCH (09:54)
[2017-03-22] MEDS: Enoxaparin 40 mg Syringe SC SCH (09:54)
--- NOTE | 2017-03-22 13:35 | CP.PCM.PN ---
Subjective - Date & Time of Evaluation Date of Evaluation: 03/22/17 Time of Evaluation: 13:35 Objective - Vital Signs/Intake and Output Vital Signs (last 24 hours): Temp Pulse Resp BP Pulse Ox 98.0 F 77 20 147/94 H 98 03/22/17 07:01 03/22/17 07:01 03/22/17 07:01 03/22/17 07:01 03/22/17 07:01 Intake and Output: 03/22/17 03/22/17 06:59 18:59 Intake Total 200 100 Balance 200 100 - Medications Medications: Current Medications Albuterol/Ipratropium (Duoneb 3 Mg/0.5 Mg (3 Ml) Ud) 3 ml INH RQ6 [facility] Last Admin: 03/22/17 13:07 Dose: Not Given Clonidine HCl (Catapres) 0.1 mg PO BID [facility] Last Admin: 03/22/17 12:54 Dose: 0.1 mg Dicyclomine HCl (Bentyl) 10 mg PO Q8 PRN PRN Reason: GI distress Last Admin: 03/21/17 04:49 Dose: 10 mg Divalproex Sodium (Depakote Dr) 500 mg PO TID [facility] Last Admin: 03/22/17 09:54 Dose: 500 mg Enoxaparin Sodium (Lovenox) 40 mg SC DAILY [facility] Last Admin: 03/22/17 09:54 Dose: Not Given Gabapentin (Neurontin) 300 mg PO TID [facility] Last Admin: 03/22/17 09:53 Dose: 300 mg Hydroxyzine HCl (Atarax) 25 mg PO Q6 PRN PRN Reason: Anxiety Last Admin: 03/21/17 04:49 Dose: 25 mg Azithromycin 500 mg/ Sodium (Chloride) 250 mls @ 250 mls/hr IVPB DAILY [facility] Last Admin: 03/22/17 09:53 Dose: 250 mls/hr Ceftriaxone Sodium 1 gm/ (Sodium Chloride) 100 mls @ 100 mls/hr IVPB DAILY [facility] Last Admin: 03/22/17 11:33 Dose: 100 mls/hr Methimazole (Tapazole) 10 mg PO BID [facility] Last Admin: 03/22/17 09:53 Dose: 10 mg Methylprednisolone (Solu-Medrol) 40 mg IV Q8 [facility] Last Admin: 03/22/17 06:19 Dose: 40 mg Montelukast Sodium (Singulair) 10 mg PO HS [facility] Last Admin: 03/21/17 21:08 Dose: 10 mg Nicotine (Nicoderm Cq) 1 patch TD DAILY [facility] Last Admin: 03/22/17 09:54 Dose: 1 patch Pantoprazole Sodium (Protonix Ec Tab) 40 mg PO DAILY [facility] Last Admin: 03/21/17 09:21 Dose: 40 mg Risperidone (Risperdal Tab) 3 mg PO TID [facility] Last Admin: 03/22/17 09:54 Dose: 3 mg Fluticasone/Salmeterol (Advair Diskus 250/50) 1 puff INH RQ12 [facility] Last Admin: 03/22/17 08:07 Dose: 1 puff Sertraline HCl (Zoloft) 50 mg PO BID [facility] Last Admin: 03/22/17 09:54 Dose: 50 mg Zolpidem Tartrate (Ambien) 5 mg PO HS PRN PRN Reason: Insomnia - Labs Labs: 03/19/17 19:01 03/19/17 19:01
[2017-03-23 01:04] VITALS: BP 149/86; PULSE 77; TEMP 97.8; O2SAT 94
[2017-03-23] MEDS: Albuterol-Ipratrop 3 mg / 0.5 (3 ml) UD INH SCH ×2 (01:27→07:38)
[2017-03-23] MEDS: MethylPREDNISolone 40 mg Vial IV SCH (06:38)
[2017-03-23] MEDS: Fluticasone-Salmeterol 250-50mcg Diskus INH SCH (07:37)
--- NOTE | 2017-03-23 08:09 | CP.PCM.PN ---
Subjective - Date & Time of Evaluation Date of Evaluation: 03/23/17 Time of Evaluation: 06:30 - Subjective Subjective: clinically same Objective - Vital Signs/Intake and Output Vital Signs (last 24 hours): Temp Pulse Resp BP Pulse Ox 97.8 F 77 20 149/86 94 L 03/23/17 00:00 03/23/17 00:00 03/23/17 00:00 03/23/17 00:00 03/23/17 00:00 Intake and Output: 03/23/17 03/23/17 06:59 18:59 Intake Total 200 Balance 200 - Medications Medications: Current Medications Albuterol/Ipratropium (Duoneb 3 Mg/0.5 Mg (3 Ml) Ud) 3 ml INH RQ6 [facility] Last Admin: 03/23/17 07:38 Dose: 3 ml Clonidine HCl (Catapres) 0.1 mg PO Q8H [facility] Last Admin: 03/23/17 06:38 Dose: 0.1 mg Dicyclomine HCl (Bentyl) 10 mg PO Q8 PRN PRN Reason: GI distress Last Admin: 03/21/17 04:49 Dose: 10 mg Divalproex Sodium (Depakote Dr) 500 mg PO TID [facility] Last Admin: 03/22/17 18:00 Dose: Not Given Enoxaparin Sodium (Lovenox) 40 mg SC DAILY [facility] Last Admin: 03/22/17 09:54 Dose: Not Given Gabapentin (Neurontin) 300 mg PO TID [facility] Last Admin: 03/22/17 18:00 Dose: Not Given Hydroxyzine HCl (Atarax) 25 mg PO Q6 PRN PRN Reason: Anxiety Last Admin: 03/21/17 04:49 Dose: 25 mg Azithromycin 500 mg/ Sodium (Chloride) 250 mls @ 250 mls/hr IVPB DAILY [facility] Last Admin: 03/22/17 09:53 Dose: 250 mls/hr Ceftriaxone Sodium 1 gm/ (Sodium Chloride) 100 mls @ 100 mls/hr IVPB DAILY [facility] Last Admin: 03/22/17 11:33 Dose: 100 mls/hr Methimazole (Tapazole) 10 mg PO BID [facility] Last Admin: 03/22/17 18:00 Dose: Not Given Methylprednisolone (Solu-Medrol) 40 mg IV Q8 [facility] Last Admin: 03/23/17 06:38 Dose: 40 mg Metoclopramide HCl (Reglan) 10 mg IVP ACHS [facility] Last Admin: 03/23/17 06:38 Dose: 10 mg Montelukast Sodium (Singulair) 10 mg PO HS [facility] Last Admin: 03/22/17 21:35 Dose: 10 mg Nicotine (Nicoderm Cq) 1 patch TD DAILY [facility] Last Admin: 03/22/17 09:54 Dose: 1 patch Ondansetron HCl (Zofran Inj) 8 mg IVP Q8H PRN PRN Reason: Nausea/Vomiting Pantoprazole Sodium (Protonix Ec Tab) 40 mg PO DAILY [facility] Last Admin: 03/22/17 09:54 Dose: 40 mg Risperidone (Risperdal Tab) 3 mg PO TID [facility] Last Admin: 03/22/17 18:00 Dose: Not Given Fluticasone/Salmeterol (Advair Diskus 250/50) 1 puff INH RQ12 [facility] Last Admin: 03/23/17 07:37 Dose: 1 puff Sertraline HCl (Zoloft) 50 mg PO BID [facility] Last Admin: 03/22/17 18:00 Dose: Not Given Zolpidem Tartrate (Ambien) 5 mg PO HS PRN PRN Reason: Insomnia - Labs Labs: 03/19/17 19:01 03/19/17 19:01
--- NOTE | 2017-03-23 08:26 | CP.PCM.PN ---
Subjective - Date & Time of Evaluation Date of Evaluation: 03/23/17 Time of Evaluation: 08:23 - Subjective Subjective: PT REQUESTING TO SIGN AMA PER SOTO FERRARI. I EXAMINED THE PT AND SHE HAS NO C/O. PT STATES SHE FEELS BETTER AND WANTS TO LEAVE. CHART REVIEWED BY ME. ON EXAM PT AAOX3, SPEECH CLEAR; NO SOB, BS CTA B/L; REG RHYTHM, NO MURMURS; GAIT STEADY; ABD SOFT, NT, ND. OK TO D/C HOME TODAY PER DR. Kirk STORM. LEFT MESSAGE FOR DR. ARELLANO REGARDING D/C. REFILL RX SENT TO PT'S PHARMACY. RX FOR MEDROL, ZITHRO PO SENT TO [facility]. SHE IS INSTRUCTED TO F[facility] [address] [facility] THE [facility]PITAL AND WITH HER PMD DR. Cynthia ROMO. D/C INFORMATION DISCUSSED AT LENGTH WITH THE PT. SOTO VEE AWARE OF PLAN. NO FURTHER ORDERS. Objective - Vital Signs/Intake and Output Vital Signs (last 24 hours): Temp Pulse Resp BP Pulse Ox 97.8 F 77 20 149/86 94 L 03/23/17 00:00 03/23/17 00:00 03/23/17 00:00 03/23/17 00:00 03/23/17 00:00 Intake and Output: 03/23/17 03/23/17 06:59 18:59 Intake Total 200 Balance 200 - Medications Medications: Current Medications Albuterol/Ipratropium (Duoneb 3 Mg/0.5 Mg (3 Ml) Ud) 3 ml INH RQ6 [facility] Last Admin: 03/23/17 07:38 Dose: 3 ml Clonidine HCl (Catapres) 0.1 mg PO Q8H [facility] Last Admin: 03/23/17 06:38 Dose: 0.1 mg Dicyclomine HCl (Bentyl) 10 mg PO Q8 PRN PRN Reason: GI distress Last Admin: 03/21/17 04:49 Dose: 10 mg Divalproex Sodium (Depakote Dr) 500 mg PO TID [facility] Last Admin: 03/22/17 18:00 Dose: Not Given Enoxaparin Sodium (Lovenox) 40 mg SC DAILY [facility] Last Admin: 03/22/17 09:54 Dose: Not Given Gabapentin (Neurontin) 300 mg PO TID [facility] Last Admin: 03/22/17 18:00 Dose: Not Given Hydroxyzine HCl (Atarax) 25 mg PO Q6 PRN PRN Reason: Anxiety Last Admin: 03/21/17 04:49 Dose: 25 mg Azithromycin 500 mg/ Sodium (Chloride) 250 mls @ 250 mls/hr IVPB DAILY [facility] Last Admin: 03/22/17 09:53 Dose: 250 mls/hr Ceftriaxone Sodium 1 gm/ (Sodium Chloride) 100 mls @ 100 mls/hr IVPB DAILY [facility] Last Admin: 03/22/17 11:33 Dose: 100 mls/hr Methimazole (Tapazole) 10 mg PO BID [facility] Last Admin: 03/22/17 18:00 Dose: Not Given Methylprednisolone (Solu-Medrol) 40 mg IV Q8 [facility] Last Admin: 03/23/17 06:38 Dose: 40 mg Metoclopramide HCl (Reglan) 10 mg IVP ACHS [facility] Last Admin: 03/23/17 06:38 Dose: 10 mg Montelukast Sodium (Singulair) 10 mg PO HS [facility] Last Admin: 03/22/17 21:35 Dose: 10 mg Nicotine (Nicoderm Cq) 1 patch TD DAILY [facility] Last Admin: 03/22/17 09:54 Dose: 1 patch Ondansetron HCl (Zofran Inj) 8 mg IVP Q8H PRN PRN Reason: Nausea/Vomiting Pantoprazole Sodium (Protonix Ec Tab) 40 mg PO DAILY [facility] Last Admin: 03/22/17 09:54 Dose: 40 mg Risperidone (Risperdal Tab) 3 mg PO TID [facility] Last Admin: 03/22/17 18:00 Dose: Not Given Fluticasone/Salmeterol (Advair Diskus 250/50) 1 puff INH RQ12 [facility] Last Admin: 03/23/17 07:37 Dose: 1 puff Sertraline HCl (Zoloft) 50 mg PO BID [facility] Last Admin: 03/22/17 18:00 Dose: Not Given Zolpidem Tartrate (Ambien) 5 mg PO HS PRN PRN Reason: Insomnia - Labs Labs: 03/19/17 19:01 03/19/17 19:01
== END 2017-03-23 08:30 | disposition home or self-care (01) | DRG 744 ==
LOC: C.ER 17:52 → C.9E 21:18 → C.5S 22:34
PROVIDERS: ADMIT Internal Medicine Nephrology; ATTEND Internal Medicine Nephrology
PROC: HZ2ZZZZ Detoxification Services for Substance Abuse Treatment (ICD-10-PCS; principal; 2017-03-19)
DX: F11.23 Opioid dependence with withdrawal (principal); J18.9 Pneumonia, unspecified organism; R56.9 Unspecified convulsions; J44.0 Chronic obstructive pulmonary disease with (acute) lower respiratory infection; J44.1 Chronic obstructive pulmonary disease with (acute) exacerbation; R09.02 Hypoxemia; F31.9 Bipolar disorder, unspecified; I10 Essential (primary) hypertension; E03.9 Hypothyroidism, unspecified; F17.210 Nicotine dependence, cigarettes, uncomplicated